=== PATIENT | female | born 1995 | race Caucasian/White ===

== ENCOUNTER 2019-01-21 07:41 | Emergency (ER) | payer SELFPAY ==
--- NOTE | 2019-01-21 08:52 | ER ---
Nurse's Notes [facility] Name: Radha Mason Age: 23 yrs Sex: Female : 1995 Arrival Date: 01/21/2019 Time: 07:43 Bed 13 Private MD: Diagnosis: Acute upper respiratory infection, unspecified Presentation: 01/21 07:49 Presenting complaint: Patient states: reports subjective fever, body aches, reports em chest pain with cough, and hacking milky/yellowish sputum for 3 days, denies N/V/D. Transition of care: patient was not received from another setting of care. Onset of symptoms was January 18, 2019. Risk Assessment: Do you want to hurt yourself or someone else? Patient reports no desire to harm self or others. Initial Sepsis Screen: Does the patient meet any 2 criteria? HR > 90 bpm. No. Patient's initial sepsis screen is negative. Does the patient have a suspected source of infection? Yes: Productive cough/pneumonia. Care prior to arrival: None. 07:49 Method Of Arrival: Ambulatory em 07:55 Acuity: JULIA 4 ss Triage Assessment: 07:52 General: Appears in no apparent distress. uncomfortable, ill, well groomed, well em developed, well nourished, Behavior is calm, cooperative. Pain: Complains of pain in chest Pain currently is 6 out of 10 on a pain scale. 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 - Social history:: Smoking status: unknown. - Ebola Screening: : Patient negative for fever greater than or equal to 101.5 degrees Fahrenheit, and additional compatible Ebola Virus Disease symptoms Patient denies exposure to infectious person Patient denies travel to an Ebola-affected area in the 21 days before illness onset No symptoms or risks identified at this time. Screenin:54 Abuse screen: Denies threats or abuse. Nutritional screening: No deficits noted. em Tuberculosis screening: No symptoms or risk factors identified. Fall Risk None identified. Assessment: 07:52 General: Appears in no apparent distress. uncomfortable, ill, Behavior is calm, em cooperative, Denies subjective fever. Pain: Complains of pain in chest Pain currently is 7 out of 10 on a pain scale. Neuro: Level of Consciousness is awake, alert, obeys commands, Oriented to person, place, time, situation. Cardiovascular: Reports chest pain, Heart tones S1 S2 present Capillary refill < 3 seconds Patient's skin is warm and dry. Respiratory: Reports cough that is hacking, pain with cough Airway is patent Respiratory effort is even, unlabored, Respiratory pattern is regular, symmetrical, Breath sounds are clear bilaterally. GI: Abdomen is flat, Patient currently denies diarrhea, nausea, vomiting. EENT: Nares are clear Oral mucosa is moist. Throat is clear is pink. Derm: Skin is intact, is healthy with good turgor, Skin is pink, warm \T\ dry. Musculoskeletal: Range of motion: intact in all extremities. 08:00 Reassessment: Patient appears in no apparent distress at this time. I agree with the sv above assessment. 09:09 Reassessment: Patient appears in no apparent distress at this time. Patient and/or em family updated on plan of care and expected duration. Pain level reassessed. Patient is alert, oriented x 3, equal unlabored respirations, skin warm/dry/pink. Vital Signs: 07:52 BP 107 / 71; Pulse 119; Resp 20; Temp 99.0(O); Pulse Ox 99% on R/A; Weight 61.23 kg; em Height 5 ft. 6 in. (167.64 cm); Pain 7/10; 09:09 BP 98 / 75; Pulse 112; Resp 18; Temp 99.1(O); Pulse Ox 100% on R/A; em 07:52 Body Mass Index 21.79 (61.23 kg, 167.64 cm) em ED Course: 07:43 Patient arrived in ED. as 07:46 Jaiden Diaz LVN is Primary Nurse. em 07:52 Arm band placed on. em 07:54 Patient has correct armband on for positive identification. Bed in low position. Call em light in reach. Side rails up X2. Adult w/ patient. Pulse ox on. NIBP on. 07:55 Triage completed. ss 07:56 Davis Davis PA is PHCP. jr8 07:56 Edgar Livingston MD is Attending Physician. jr8 09:13 No provider procedures requiring assistance completed. Patient did not have IV access em during this emergency room visit. Administered Medications: No medications were administered Outcome: 08:51 Discharge ordered by . jr8 09:13 Discharged to home ambulatory, with family. em 09:13 Condition: good 09:13 Discharge instructions given to patient, family, Instructed on discharge instructions, follow up and referral plans. medication usage, Demonstrated understanding of instructions, follow-up care, medications, Prescriptions given X 3. 09:13 Patient left the ED. em Signatures: Luz Puri, RN RN sv Jaiden Diaz, PROJECT ANALYST PROJECT ANALYST em Mi Bolanos Shelby, RN RN Davis Davis PA PA jr8
--- NOTE | 2019-01-21 08:53 | EDPHYS ---
Physician Documentation [facility] Name: Radha Mason Age: 23 yrs Sex: Female : 1995 Arrival Date: 01/21/2019 Time: 07:43 Bed 13 Private MD: ED Physician Edgar Livingston HPI: 01/21 08:05 This 23 yrs old Female presents to ER via Ambulatory with complaints of Flu jr8 Symptoms. 08:05 The patient reports fever, not measured (subjective). Onset: The symptoms/episode jr8 began/occurred acutely, 3 day(s) ago. Modifying factors: there are no obvious modifying factors. Associated signs and symptoms: Pertinent positives: arthralgias, chills, cough, shortness of breath, sore throat. Severity of symptoms: At their worst the symptoms were mild in the emergency department the symptoms are unchanged. The patient has not experienced similar symptoms in the past. The patient has not recently seen a physician. 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 - Social history:: Smoking status: unknown. - Ebola Screening: : Patient negative for fever greater than or equal to 101.5 degrees Fahrenheit, and additional compatible Ebola Virus Disease symptoms Patient denies exposure to infectious person Patient denies travel to an Ebola-affected area in the 21 days before illness onset No symptoms or risks identified at this time. ROS: 08:05 Eyes: Negative for injury, pain, redness, and discharge, Neck: Negative for injury, jr8 pain, and swelling, Cardiovascular: Negative for chest pain, palpitations, and edema, Abdomen/GI: Negative for abdominal pain, nausea, vomiting, diarrhea, and constipation, Back: Negative for injury and pain, MS/Extremity: Negative for injury and deformity, Skin: Negative for injury, rash, and discoloration, Neuro: Negative for headache, weakness, numbness, tingling, and seizure. 08:05 Constitutional: Positive for body aches, chills, fatigue, fever. 08:05 ENT: Positive for sore throat, Negative for drainage from ear(s), ear pain, rhinorrhea, sinus congestion, difficulty swallowing, difficulty handling secretions, hoarseness. 08:05 Respiratory: Positive for cough, shortness of breath, Negative for dyspnea on exertion, sputum production, wheezing. Exam: 08:05 Eyes: Pupils equal round and reactive to light, extra-ocular motions intact. Lids and jr8 lashes normal. Conjunctiva and sclera are non-icteric and not injected. Cornea within normal limits. Periorbital areas with no swelling, redness, or edema. ENT: Nares patent. No nasal discharge, no septal abnormalities noted. Tympanic membranes are normal and external auditory canals are clear. Oropharynx with no redness, swelling, or masses, exudates, or evidence of obstruction, uvula midline. Mucous membranes moist. Neck: Trachea midline, no thyromegaly or masses palpated, and no cervical lymphadenopathy. Supple, full range of motion without nuchal rigidity, or vertebral point tenderness. No Meningismus. Cardiovascular: Regular rate and rhythm with a normal S1 and S2. No gallops, murmurs, or rubs. Normal PMI, no JVD. No pulse deficits. Respiratory: Lungs have equal breath sounds bilaterally, clear to auscultation and percussion. No rales, rhonchi or wheezes noted. No increased work of breathing, no retractions or nasal flaring. Abdomen/GI: Soft, non-tender, with normal bowel sounds. No distension or tympany. No guarding or rebound. No evidence of tenderness throughout. Back: No spinal tenderness. No costovertebral tenderness. Full range of motion. Skin: Warm, dry with normal turgor. Normal color with no rashes, no lesions, and no evidence of cellulitis. MS/ Extremity: Pulses equal, no cyanosis. Neurovascular intact. Full, normal range of motion. Neuro: Awake and alert, GCS 15, oriented to person, place, time, and situation. Cranial nerves II-XII grossly intact. Motor strength 5/5 in all extremities. Sensory grossly intact. Cerebellar exam normal. Normal gait. 08:05 Constitutional: The patient appears alert, awake, non-toxic, obviously ill. Vital Signs: 07:52 BP 107 / 71; Pulse 119; Resp 20; Temp 99.0(O); Pulse Ox 99% on R/A; Weight 61.23 kg; em Height 5 ft. 6 in. (167.64 cm); Pain 7/10; 09:09 BP 98 / 75; Pulse 112; Resp 18; Temp 99.1(O); Pulse Ox 100% on R/A; em 07:52 Body Mass Index 21.79 (61.23 kg, 167.64 cm) em MDM: 07:56 Patient medically screened. [facility] 08:50 Data reviewed: vital signs, nurses notes, lab test result(s), Flu: negative radiologic [facility] studies, plain films. Data interpreted: Pulse oximetry: on room air is 99 %. Interpretation: normal. Counseling: I had a detailed discussion with the patient and/or guardian regarding: the historical points, exam findings, and any diagnostic results supporting the discharge/admit diagnosis, lab results, radiology results, the need for outpatient follow up, a family practitioner, to return to the emergency department if symptoms worsen or persist or if there are any questions or concerns that arise at home. 01/21 07:56 Order name: Influenza Screen (a \T\ B) [facility] 01/21 08:34 Order name: Influenza Screen (A ; Complete Time: 08:40 EDMS 01/21 08:04 Order name: XRAY Chest (1 view) [facility] 01/21 08:54 Order name: RAD; Complete Time: 08:54 EDMS Administered Medications: No medications were administered Disposition: 15:33 Co-signature as Attending Physician, Edgar Livingston MD I agree with the assessment and kdr plan of care. Disposition: 01/21/19 08:51 Discharged to Home. Impression: Acute upper respiratory infection, unspecified. - Condition is Stable. - Discharge Instructions: Upper Respiratory Infection, Adult. - Prescriptions for Prednisone 20 mg Oral Tablet - take 1 tablet by ORAL route once daily for 5 days; 5 tablet. Guaifenesin AC 10- 100 mg/5 mL Oral Liquid - take 10 milliliter by ORAL route every 4 hours As needed; 240 milliliter. Tessalon Perles 100 mg Oral Capsule - take 1 capsule by ORAL route every 8 hours As needed; 15 capsule. - Medication Reconciliation Form, Thank You Letter, Antibiotic Education, Prescription Opioid Use form. - Follow up: Private Physician; When: As needed; Reason: Recheck today's complaints, Continuance of care, Re-evaluation by your physician. - Problem is new. - Symptoms have improved. Signatures: Dispatcher [employer] EDEdgar Curtis MD MD kdr Munoz, Edgar, COMMERCIAL HVAC SERVICE TECHNICIAN COMMERCIAL HVAC SERVICE TECHNICIAN Davis Tripathi PA PA jr8 Corrections: (The following items were deleted from the chart) 09:13 08:51 01/21/2019 08:51 Discharged to Home. Impression: Acute upper respiratory em infection, unspecified. Condition is Stable. Forms are Medication Reconciliation Form, Thank You Letter, Antibiotic Education, Prescription Opioid Use. Follow up: Private Physician; When: As needed; Reason: Recheck today's complaints, Continuance of care, Re-evaluation by your physician. Problem is new. Symptoms have improved. jr8
--- NOTE | 2019-01-21 08:53 | RAD REPORT ---
EXAM DESCRIPTION: RAD - Chest Single View - 01/21/2019 8:46 am CLINICAL HISTORY: Cough, fever, body aches COMPARISON: None. TECHNIQUE: AP portable chest image was obtained 0840 hours . FINDINGS: Lungs are clear. Heart and vasculature are normal. No measurable pleural effusion and no p neumothorax. No acute bony abnormality seen. No acute aortic findings suspected. IMPRESSION: No acute cardiopulmonary process.
== END 2019-01-21 09:13 | disposition home or self-care (01) ==
LOC: ER 07:41
DX: J06.9 Acute upper respiratory infection, unspecified (principal)
CPT/HCPCS: 71045; 87804; 99283

== ENCOUNTER 2022-09-14 15:19 | Emergency (ER) | payer SELFPAY ==
--- OUTSIDE RECORDS SUMMARY | 2022-09-14 15:22 | XMS REPORT | Continuity of Care Document ---
:1995 Author Organization [facility] t Address [address] [place] [address] Care Team Providers Name Role Phone Boris Bowen MD Primary Care Physician BORIS BOWEN Attending Clinician Unavailable Boris Bowen MD Attending Clinician Shoshana Rodriguez PA-C Attending Clinician SHOSHANA RODRIGUEZ Attending Clinician Unavailable Blayne Coker MD Attending Clinician BLAYNE COKER Attending Clinician Unavailable Doctor Unassigned, [place] Attending Clinician Unavailable Mary Soto Attending Clinician MARY BACA Attending Clinician Unavailable Pob, Adc Lab Main Attending Clinician Unavailable Problems Condition Condition Condition Status Onset Resolution Last Treating Co mments Source Name Details Category Date Date Treatment Clinician Date ASCUS with ASCUS with Disease Active 2020-11 U nivers positive positive 0-11 [place] HPV HPV 00 [place] cervical cervical Branch Anxiety Anxiety Disease Active Univers 1-11 ity of 00:00: [place] 00 Medical Branch Allergies, Adverse Reactions, Alerts Allergy Allergy Status Severity Reaction(s) Onset Inactive Treating Comm ents Source Name Type Date Date Clinician Cefprozi Propensi Active Unknown - Uni vers l ty to See comments - ity of adverse 00:00: [place] reaction 00 Medical s Branch CEFPROZI DRUG Active Unknown-Cmnt Un carol L INGREDI 1-11 ity of 00:00: [place] 00 Medical Branch Social History Social Habit Start Date Stop Date Quantity Comments Source Exposure to Not sure University of SARS-CoV-2 [place] Medical (event) Branch History of Occasional tobacco Univer sity of tobacco use smoker [facility] Alcohol intake 2021-09-17 2021-09-17 Current University of 00:00:00 00:00:00 non-drinker of [facility] alcohol (finding) Branch Tobacco use and 2015-12-10 2015-12-10 Smokeless tobacco Un iversity of exposure 00:00:00 00:00:00 non-user [facility] Sex Ass[birth year] At [birth year] Universit y of 00:00:00 00:00:00 [facility] Smoking Status Start Date Stop Date Source Occasional tobacco smoker 2015-12-10 00:00:00 Un iversity of [facility] Medications Ordered Filled Start Stop Current Ordering Indication Dosage Frequency Signature Comments Components Source Medication Medication Date Date Medication? Clinician (SIG) Name Name ALPRAZOLAM Yes [id number] 1mg TAKE 1 U nivers 1 mg tablet 7-06 TABLET BY ity of 00:00: MOUTH 3 00 (THREE) Medical TIMES Branch DAILY NEEDED FOR OTHER (ANXIETY). ALPRAZOLAM Yes [id number] 1mg TAKE 1 U nivers 1 mg tablet 7-06 TABLET BY ity of 00:00: MOUTH 3 [place] 00 (THREE) Medical TIMES Branch DAILY NEEDED FOR OTHER (ANXIETY). ALPRAZOLAM Yes [id number] 1mg TAKE 1 U nivers 1 mg tablet 7-06 TABLET BY ity of 00:00: MOUTH 3 [place] 00 (THREE) Medical TIMES Branch DAILY NEEDED FOR OTHER (ANXIETY). ALPRAZOLAM Yes [id number] 1mg TAKE 1 U nivers 1 mg tablet 7-06 TABLET BY ity of 00:00: MOUTH 3 [place] 00 (THREE) Medical TIMES Branch DAILY NEEDED FOR OTHER (ANXIETY). ALPRAZOLAM Yes [id number] 1mg TAKE 1 U nivers 1 mg tablet 7-06 TABLET BY ity of 00:00: MOUTH 3 [place] 00 (THREE) Medical TIMES Branch DAILY NEEDED FOR OTHER (ANXIETY). ALPRAZolam No [id number] 1mg Take 1 Univers 1 mg tablet 3-16 07-06 tablet by it y of 00:00: 00:00 mouth 3 [place] 00 :00 (three) Medical times Branch daily as needed for Other (anxiety). ALPRAZolam 2021-0 Yes [id number] 1mg Take 1 U nivers 1 mg tablet 2-07 tablet by ity of 00:00: mouth 3 [place] 00 (three) Medical times Branch daily as needed for Other (anxiety). ALPRAZolam 0 Yes [id number] 1mg Take 1 U nivers 1 mg tablet 2-07 tablet by ity of 00:00: mouth 3 [place] 00 (three) Medical times Branch daily as needed for Other (anxiety). ALPRAZolam 2021-0 Yes [id number] 1mg Take 1 U nivers 1 mg tablet 2-07 tablet by ity of 00:00: mouth 3 [place] 00 (three) Medical times Branch daily as needed for Other (anxiety). metroNIDAZO 2021-0 Yes [id number] 500mg Take 1 Univers LE 500 mg 1-10 tablet by ity o f tablet 00:00: mouth [place] 00 every 12 Medical (twelve) Branch hours. metroNIDAZO 2021-0 Yes [id number] 500mg Take 1 Univers LE 500 mg 1-10 tablet by ity o f tablet 00:00: mouth [place] 00 every 12 Medical (twelve) Branch hours. metroNIDAZO 2021-0 Yes [id number] 500mg Take 1 Univers LE 500 mg 1-10 tablet by ity o f tablet 00:00: mouth [place] 00 every 12 Medical (twelve) Branch hours. metroNIDAZO 2021-0 Yes [id number] 500mg Take 1 Univers LE 500 mg 1-10 tablet by ity o f tablet 00:00: mouth [place] 00 every 12 Medical (twelve) Branch hours. metroNIDAZO 2021-0 Yes [id number] 500mg Take 1 Univers LE 500 mg 1-10 tablet by ity o f tablet 00:00: mouth [place] 00 every 12 Medical (twelve) Branch hours. metroNIDAZO 2021-0 Yes [id number] 500mg Take 1 Univers LE 500 mg 1-10 tablet by ity o f tablet 00:00: mouth [place] 00 every 12 Medical (twelve) Branch hours. metroNIDAZO 2021-0 Yes [id number] 500mg Take 1 Univers LE 500 mg 1-10 tablet by ity o f tablet 00:00: mouth [place] 00 every 12 Medical (twelve) Branch hours. metroNIDAZO 0 Yes [id number] 500mg Take 1 Univers LE 500 mg 1-10 tablet by ity o f tablet 00:00: mouth [place] 00 every 12 Medical (twelve) Branch hours. metroNIDAZO 0 Yes [id number] 500mg Take 1 Univers LE 500 mg 1-10 tablet by ity o f tablet 00:00: mouth [place] 00 every 12 Medical (twelve) Branch hours. metroNIDAZO 0 Yes [id number] 500mg Take 1 Univers LE 500 mg 1-10 tablet by ity o f tablet 00:00: mouth [place] 00 every 12 Medical (twelve) Branch hours. metroNIDAZO Yes [id number] 500mg Take 1 Univers LE 500 mg 1-10 tablet by ity o f tablet 00:00: mouth [place] 00 every 12 Medical (twelve) Branch hours. metroNIDAZO 2020-11- No [id number] 500mg Take 1 Univers LE 500 mg 1-01 01-10 tablet by ity of tablet 00:00: 00:00 mouth [place] 00 :00 every 12 Medical (twelve) Branch hours. ALPRAZolam Yes [id number] 1mg Take 1 U nivers 1 mg tablet 8-09 tablet by ity of 00:00: mouth 3 [place] 00 (three) Medical times Branch daily as needed for Other (anxiety). ALPRAZolam Yes [id number] 1mg Take 1 U nivers 1 mg tablet 8-09 tablet by ity of 00:00: mouth 3 [place] 00 (three) Medical times Branch daily as needed for Other (anxiety). ALPRAZolam Yes [id number] 1mg Take 1 U nivers 1 mg tablet 8-09 tablet by ity of 00:00: mouth 3 [place] 00 (three) Medical times Branch daily as needed for Other (anxiety). ALPRAZolam 2021- No [id number] 1mg Take 1 Univers 1 mg tablet 8-08 01-07 tablet by it y of 00:00: 00:00 mouth 3 [place] 00 :00 (three) Medical times Branch daily as needed for Other (anxiety). Vital Signs Vital Name Observation Time Observation Value Comments Source Systolic blood 2021-12-09 20:44:00 111 mm[Hg] Univer sity of pressure [facility] Diastolic blood 2021-12-09 20:44:00 76 mm[Hg] Unive rsity of [facility] Heart rate 2021-12-09 20:44:00 82 /min [facility] Body temperature 2021-12-09 20:44:00 36.61 Jessica [facility] 2021-12-09 20:44:00 18 /min [facility] Body height 2021-12-09 20:44:00 165.1 cm [facility] Body weight 2021-12-09 20:44:00 49.896 kg [facility] BMI 2021-12-09 20:44:00 18.30 kg/m2 [facility] Procedures This patient has no known procedures. Encounters Start End Encounter Admission Attending Care Care Encounter Source Date/Time Date/Time Type Type Clinicians Facility Department ID 2022-09-17 2022-09-17 Outpatient R ANDRÉS [facility] [id number] Univers 08:30:00 [facility]:30:[facility] 2022-09-10 2022-09-10 Telephone [facility] [id number] Univers 00:00:00 00:00:00 [facility] [id number] [facility] [id number] Lauri as SARMAD?BLEA [id number] [address] OFFICE [facility] 2022-09-04 2022-09-04 [facility] [id number] Univers 00:00:00 00:00:00 [facility] [id number] it y of [place] [id number] Lauri as SARMAD?BLEA [phone] [address] 2022-06-04 2022-06-04 [facility] [id number] Univers 00:00:00 00:00:00 [facility] [id number] it y of [place] [id number] Lauri as SARMAD?BLEA [phone] Ar marika CUELLAR [address] [place] [address] OFFICE [facility] 2022-02-12 2022-02-12 Outpatient Christi BOWEN [facility] [id number] Univers 13:15:00 13:15:00 BORIS lyubov [facility] 2022-02-09 2022-02-09 [facility] 1.2.840.114 [id number] Univers 00:00:00 00:00:00 [facility] [id number] it y of [place] [id number] Lauri as PROFESSIO [phone] Ar marika NAL [address] [place] [address] ONE 2022-01-08 2022-01-08 Outpatient Christi BOWEN [facility] [id number] Univers 07:15:00 07:15:00 BORIS lyubov [facility] 2022-01-06 2022-01-06 [facility] 1.2.840.114 [id number] Univers 00:00:00 00:00:00 [facility] [id number] it y of [place] [id number] Lauri as SARMAD?BLEA [phone] Ar marika CUELLAR [address] [place] [address] 2022-01-05 2022-01-05 [facility] 1.2.840.114 [id number] Univers 00:00:00 00:00:00 [facility] 350.1.13.10 it y of [place] [id number] Lauri as PROFESSIO [phone] Ar marika NAL [address] [place] [address] ONE 2021-12-31 2021-12-31 [facility] 1.2.840.114 [id number] Univers 00:00:00 00:00:00 [facility] [id number] it y of [place] [id number] Lauri as PROFESSIO [id number] [facility] NAL [address] [place] [address] ONE 2021-12-25 2021-12-25 Telephone [facility] 1.2.840.114 [id number] Univers 00:00:00 00:00:00 Shoshanaguillermo FARIASBINH 350.1.13.10 i ty of [place] 4.2.7.2.686 [place] PROFESS[place] [phone] [address] 2021-12-09 2021-12-09 Outpatient R STONE [facility] [id number] Univers 14:15:00 14:54:28 SHOSHANA [facility] 2021-12-09 2021-12-09 Office [facility] [id number] Univers 14:15:00 14:54:28 Visit Shoshana WORLEY 350.1.13.10 i [place] 4.2.7.2.686 [place] PROFESS[place] [phone] [address] 2021-09-30 2021-09-30 Office [facility] 1.2.084.126 [id number] Univers 10:04:44 10:31:00 Visit Shoshana WORLEY 350.1.13.10 i [place] 4.2.7.2.686 [place] PROFESS[place] [phone] [address] 2021-09-30 2021-09-30 Outpatient R STONE [facility] [id number] Univers 10:00:00 10:31:00 SHOSHANA [facility] 2021-09-24 2021-09-24 Telephone Blayne Coker [facility] 1.2.840.114 [id number] Univers 00:00:00 00:00:00 Richie Worley 350.1.13.10 i ty [place]2.7.2.[place] Profess[place] [phone] Ar dic[address] 2021-09-19 2021-09-19 Outpatient R STONE [facility] [id number] Univers 14:30:00 14:30:00 SHOSHANA [facility] 2021-09-17 2021-09-17 Office Blayne Coker [facility] [id number] Univers 14:33:02 17:03:08 Visit Richie Worley 350.1.13.10 i [place] 4[place]2.7.2.686 [place] Profess[place] [phone] Ar dic[address] 2021-09-17 2021-09-17 Outpatient R BLAYNE COKER [facility] [id number] Univers 14:30:00 14:30:00 ity of [facility] 2021-09-17 2021-09-17 Orders Doctor BRANDI 1.2.840.114 [id number] Univers 00:00:00 00:00:00 Only Unassigned, ELLIE 350.1.13.10 ity of [place] [facility] 4.2.7.2.686 Lauri as [phone] [address] 2021-09-09 2021-09-09 Office [facility] [id number] Univers 08:54:46 09:36:17 Visit Mary Amanda [employer] 350.1.13.10 it y of [facility] 4.2.7.2.686 Lauri as MATERNAL [phone] Med ical & CHILD [address] [place] [address] 2021-09-09 2021-09-09 Outpatient R KEVEN [facility] [id number] Univers 08:30:00 08:30:00 MARY vasquez [facility] 2021-09-09 2021-09-09 Orders Doctor BRANDI 1.2.840.114 [id number] Univers 00:00:00 00:00:00 Only Unassigned, ELLIE 350.1.13.10 ity of [place] [facility] 4.2.7.2.686 Lauri as [phone] [address] 2021-09-03 2021-09-03 Leo [facility] [id number] Univers 00:00:00 00:00:00 Management Shoshana Worley 350.1.13.10 it[place] of [place]2.7.2.[place] [phone] Ar dic[address] 2021-09-03 2021-09-03 Jeannieill [facility] [id number] Univers 00:00:00 00:00:00 Shoshana Worley 350.1.13.10 i [place] 4[place]2.7.2.686 [place] [phone] Ar dical nal 134 [facility] 2021-08-30 2021-08-30 Telephone [facility] 1.2.840.114 [id number] Univers 00:00:00 00:00:00 Shoshana Worley 350.1.13.10 i [place] 4[place]2.7.2.[place] Profess[place] [phone] Ar dical nal 134 [facility] 2021-08-15 2021-08-15 Hospital [facility] 1.2.840.114 [id number] [facility] 14:22:37 23:59:00 Encounter Shoshana Worley 350.1.13.10 ity of [place] 4.2.7.2.686 [place] [id number] [facility] [address] 2021-08-15 2021-08-15 Office [facility] [id number] [facility] 13:17:26 14:01:51 Visit Shoshana Worley 350.1.13.10 i [place] of [place] 4[place]2.7.2.[place] [phone] Ar dical nal 134 [facility] 2021-08-15 2021-08-15 [facility] [id number] Univers 13:30:00 13:30:00 SHOSHANA ity of [facility] 2021-08-01 2021-08-01 Mold Filler Sreedhar, Adc Lab Main [facility] 1.2.8 40.114 [id number] Univers 09:30:26 09:45:26 Visit Shoshana Rodriguez 350.1.13.10 ity of [place] 4.2.7.2.[place] [phone] Ar dical nal 353 [facility] 2021-08-01 2021-08-01 Mold Filler Sreedhar, Adc Lab Main [facility] 1.2.8 40.114 [id number] Univers 09:30:26 09:45:26 Visit Shoshana Rodriguez 350.1.13.10 ity of [place] 4[place]2.7.2.686 [place] [phone] Ar dical nal 353 [facility] 2021-08-01 2021-08-01 Outpatient R [facility] [id number] Univers 09:00:00 09:00:00 ity of [facility] 2021-07-31 2021-07-31 Office Stone [facility] [id number] Univers 13:21:12 14:28:36 Visit Shoshanaguillermo Worley 350.1.13.10 i ty of [place] 4.2.7.2.686 [place] [phone] Ar dical nal 134 [facility] 2021-07-31 2021-07-31 Office [facility] [id number] Univers 13:21:12 14:28:36 Visit Shoshana Worley 350.1.13.10 i [place] of [place] 4.2.7.2.[place] [phone] Ar dical nal 134 [facility] 2021-07-31 2021-07-31 [facility] [id number] Univers 13:30:00 13:30:00 SHOSHANA pedro [facility] 2021-07-08 2021-07-08 Office [facility] 1.2.840.114 [id number] Univers 12:36:41 12:51:41 Visit [facility] 350.1.13.10 it y of [place] 4.2.7.2.686 Lauri as Professio [phone] Ar dical [facility] [address] One 2021-07-08 2021-07-08 Out[facility] [id number] Univers 12:45:00 12:45:00 BORIS vasquez [facility] 2021-07-08 2021-07-08 Orders Doctor PAZ 1.2.840.114 [id number] Univers 00:00:00 00:00:00 Only Unassigned, ELLIE 350.1.13.10 ity of [place] [facility] 4.2.7.2.686 Lauri as [phone] [address] 2021-07-04 2021-07-04 Tanya Bowen [facility] [id number] Univers 00:00:00 00:00:00 [facility] 350.1.13.10 it y of [place] 4.2.7.2.686 Lauri as Professio [phone] [address] One 2020-01-16 2020-01-16 Key[facility] 1.2.840.114 [id number] Univers 00:00:00 00:00:00 [facility] 350.1.13.10 it y of [place] 4.2.7.2.686 Lauri as Professio [phone] [facility] nal [address] [place] [address] One 2020-01-14 2020-01-14 Keyana [facility] 1.2.840.114 [id number] Univers 00:00:00 00:00:00 Boris [place] 350.1.13.10 i ty of [place] 4.2.7.2.[place] [phone] [facility] nal [address] [place] [address] 2020-01-14 2020-01-14 Keyana [facility] 1.2.840.114 [id number] Univers 00:00:00 00:00:00 [facility] 350.1.13.10 it y of [place] 4.2.7.2.686 Lauri as Professio [phone] [address] One Results This patient has no known results.
--- NOTE | 2022-09-14 17:15 | RAD REPORT ---
EXAM DESCRIPTION: RAD - Chest Single View - 09/14/2022 4:59 pm CLINICAL HISTORY: Chest pain COMPARISON: Chest Single View dated 01/21/2019 FINDINGS: Lines: None. Lungs: Mild opacities peripherally at the left lung base. Pleural: No significant pleural effusions or pneumothorax. Cardiac: Increased cardiomegaly. Mediastinum: Within normal limits. Bones: No acute fractures. Other: None IMPRESSION: Mild opacities peripherally at the left lung base could reflect atelectasis and/or pneum onia. Question developing cardiomegaly. Consider echocardiography for further evaluation.
[2022-09-14] MEDS ORDERED: AZITHROMYCIN 250 MG TAB ONE (17:20)
--- NOTE | 2022-09-14 18:03 | ER ---
Nurse's Notes [facility] Name: Radha Mason Age: 26 yrs Sex: Female : 1995 Arrival Date: 09/14/2022 Time: 15:22 Bed 17 Private MD: Diagnosis: Pneumonia, unspecified organism Presentation: 09/14 15:24 Chief complaint: Patient states: my chest hurts like hell. it hurts so bad. it has been tw2 going on for a year. this feels more like it is in my lungs than in my heart. about 3 days ago. today i woke up and i was crying. yesterday my back was hurting. and feeling nauseous weak, and fatigued. i feel short of breath and it hurts to take a deep breath. slight fever. my coworker tested positive about 2 weeks ago. Coronavirus screen: cough unrelated to allergies, fatigue. Ebola Screen: Patient denies travel to an Ebola-affected area in the 21 days before illness onset. Initial Sepsis Screen: Does the patient meet any 2 criteria? HR > 90 bpm. No. Patient's initial sepsis screen is negative. Does the patient have a suspected source of infection? No. Patient's initial sepsis screen is negative. Risk Assessment: Do you want to hurt yourself or someone else? Patient reports no desire to harm self or others. Onset of symptoms was September 14, 2022. 15:24 Method Of Arrival: Ambulatory tw2 15:24 Acuity: JULIA 3 tw2 Triage Assessment: 15:27 General: Appears in no apparent distress. slender, well groomed, Behavior is calm, tw2 cooperative, appropriate for age. Pain: Complains of pain in right lung and back. Cardiovascular: Reports shortness of breath. 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 - Social history:: Smoking status: Patient reports the use of cigarette tobacco products, smokes one-half pack cigarettes per day. Screenin:36 Abuse screen: Denies threats or abuse. Nutritional screening: No deficits noted. tw2 Tuberculosis screening: No symptoms or risk factors identified. Fall Risk None identified. Assessment: 15:35 Reassessment: provider WILL Segura in triage room performing assessment. tw2 15:36 Pain: Pain radiates to back Pain began 2-3 days ago. tw2 18:15 Reassessment: PT DC HOME AMBULATORY. bp Vital Signs: 15:24 BP 108 / 79; Pulse 111; Resp 19; Temp 99.1(TE); Pulse Ox 100% on R/A; tw2 18:15 BP 113 / 75; Pulse 99; Resp 16; Pulse Ox 99% ; bp ED Course: 15:22 Patient arrived in ED. ja2 15:27 Triage completed. tw2 15:30 Arm band placed on. tw2 15:31 [facility]C [facility] kb 15:31 Drew Duque MD is Attending Physician. kb 15:36 Patient maintains SpO2 saturation greater than 95% on room air. tw2 15:39 EKG done, by ED staff, reviewed by Karen HERMAN. em1 15:40 Flu Sent. tw2 15:40 COVID-19 SARS RT PCR (Document "Date of Onset" if Symptomatic) Sent. tw2 16:11 Geraldo Jones, RN is Primary Nurse. bp 17:00 XRAY Chest (1 view) In Process Unspecified. EDMS 18:15 Patient has correct armband on for positive identification. Bed in low position. Call bp light in reach. Side rails up X2. Client placed on continuous cardiac and pulse oximetry monitoring. NIBP monitoring applied. 18:15 No provider procedures requiring assistance completed. Patient did not have IV access bp during this emergency room visit. Administered Medications: 17:21 Drug: Zithromax (azithromycin) 500 mg Route: PO; bp 18:17 Follow up: Response: No adverse reaction bp Medication: 15:36 VIS not applicable for this client. tw2 Outcome: 18:02 Discharge ordered by . kb 18:15 Discharged to home ambulatory. bp 18:15 Condition: stable 18:15 Discharge instructions given to patient, Instructed on discharge instructions, follow up and referral plans. medication usage, Demonstrated understanding of instructions, follow-up care, medications, Prescriptions given X 1. 18:17 Patient left the ED. bp Signatures: Dispatcher [employer] EDKaren Ceballos, VIRGIL SOLIS-Oli Russo em1 Daphne Pfeiffer RN RN tw2 Geraldo Jones, RN RN bp Rosa Buitrago
--- NOTE | 2022-09-14 18:03 | EDPHYS ---
Physician Documentation [facility] Name: aRdha Mason Age: 26 yrs Sex: Female : 1995 Arrival Date: 09/14/2022 Time: 15:22 Bed 17 Private MD: ED Physician Drew Duque HPI: 09/14 15:47 This 26 yrs old Female presents to ER via Ambulatory with complaints of Chest Pain, kb Shortness Of Breath, Weakness. 15:47 The patient or guardian reports chest pain that is located primarily in the anterior kb chest wall, bilaterally. The pain does not radiate. Associated signs and symptoms: Pertinent positives: cough, shortness of breath. The chest pain is described as sharp. Duration: The patient or guardian reports a single episode. Modifying factors: The symptoms are alleviated by nothing. the symptoms are aggravated by deep breath. Severity of pain: At its worst the pain was moderate in the emergency department the pain is unchanged. The patient has not experienced similar symptoms in the past. The patient has not recently seen a physician. 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 - Social history:: Smoking status: Patient reports the use of cigarette tobacco products, smokes one-half pack cigarettes per day. ROS: 15:46 Constitutional: Negative for fever, chills, and weight loss. kb 15:46 Cardiovascular: Positive for chest pain, Negative for edema, orthopnea, palpitations, paroxysmal nocturnal dyspnea. 15:46 Respiratory: Positive for cough, pleurisy, shortness of breath. 15:46 All other systems are negative. Exam: 15:46 Constitutional: This is a well developed, well nourished patient who is awake, alert, kb and in no acute distress. Head/Face: Normocephalic, atraumatic. ENT: Moist Mucous membranes Cardiovascular: Regular rate and rhythm with a normal S1 and S2. No gallops, murmurs, or rubs. No pulse deficits. Respiratory: Respirations even and unlabored. No increased work of breathing. Talking in full sentences Abdomen/GI: Soft, non-tender. No distention Skin: Warm, dry with normal turgor. Normal color. MS/ Extremity: Pulses equal, no cyanosis. Neurovascular intact. Full, normal range of motion. Neuro: Awake and alert, GCS 15, oriented to person, place, time, and situation. Moves all extremities. Normal gait. Psych: Awake, alert, with orientation to person, place and time. Behavior, mood, and affect are within normal limits. 15:47 ECG was reviewed by the Attending Physician. kb Vital Signs: 15:24 BP 108 / 79; Pulse 111; Resp 19; Temp 99.1(TE); Pulse Ox 100% on R/A; tw2 18:15 BP 113 / 75; Pulse 99; Resp 16; Pulse Ox 99% ; bp MDM: 15:35 Patient medically screened. kb 15:46 Data reviewed: vital signs, nurses notes. Data interpreted: Pulse oximetry: on room air kb is 100 %. Interpretation: normal. 15:57 ED course: Patient refuses blood work.. 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 ED course: Discussed echo recommendation with Dr Dominique. Recommendation is for outpatient, not emergent echo.Discussed questionable cardiomegaly and need for outpatient echo. Verbal understanding received. . 09/14 15:35 Order name: COVID-19 SARS RT PCR (Document "Date of Onset" if Symptomatic); Complete kb Time: 16:25 09/14 15:35 Order name: Flu; Complete Time: 16:16 kb 09/14 15:35 Order name: XRAY Chest (1 view); Complete Time: 17:17 kb 09/14 15:35 Order name: EKG; Complete Time: 15:36 kb 09/14 15:35 Order name: Cardiac monitoring; Complete Time: 16:16 kb 09/14 15:35 Order name: EKG - Nurse/Tech; Complete Time: 15:36 kb 09/14 15:35 Order name: O2 Per Protocol; Complete Time: 15:37 kb 09/14 15:35 Order name: O2 Sat Monitoring; Complete Time: 15:36 kb EC:47 Rate is 105 beats/min. Rhythm is regular. QRS [place] is Normal. [place] interval is normal at kb 132 msec. QRS interval is normal at 76 msec. QT interval is normal at 412 msec. Administered Medications: 17:21 Drug: Zithromax (azithromycin) 500 mg Route: PO; bp 18:17 Follow up: Response: No adverse reaction bp Disposition Summary: 09/14/22 18:02 Discharge Ordered Location: Home kb Condition: Stable kb Diagnosis - Pneumonia, unspecified organism kb Followup: kb - With: Emergency Department - When: As needed - Reason: Worsening of condition Followup: kb - With: Private Physician - When: 2 - 3 days - Reason: Recheck today's complaints, Continuance of care, Re-evaluation by your physician Discharge Instructions: - Community-Acquired Pneumonia, Adult, [id number] kb - Discharge Summary Sheet tw2 Forms: - Medication Reconciliation Form kb - Thank You Letter kb - Antibiotic Education kb - Work release form tw2 - Prescription Opioid Use kb Prescriptions: - Zithromax 500 mg Oral Tablet - take 1 tablet by ORAL route once daily for 5 days; 5 tablet; Refills: 0, kb Product Selection Permitted Signatures: Dispatcher [employer] EDKaren Ceballos FNP-Inna SOLIS-Daphne Hood RN RN tw2 Geraldo Jones, RN RN bp Corrections: (The following items were deleted from the chart) 16:16 15:35 IV Saline Lock ordered. kb bp 16:16 15:35 Labs collected and sent ordered. kb bp 16:26 15:36 BASIC METABOLIC PANEL+C.LAB.BRZ ordered. EDMS EDMS 16:26 15:36 CBC+H.LAB.BRZ ordered. EDMS EDMS 16:26 15:36 D-DIMER+COAG.LAB.BRZ ordered. EDMS EDMS 16:26 15:36 Troponin High Sensitivity+C.LAB.BRZ ordered. EDMS EDMS
[2022-09-14 18:40] VITALS: TEMP 99.1
[2022-09-14 18:42] VITALS: BP 113/75; O2SAT 99
--- NOTE | 2022-09-15 16:10 | EKG ---
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
== END 2022-09-14 18:17 | disposition home or self-care (01) ==
LOC: ER 15:19
DX: J18.9 Pneumonia, unspecified organism (principal); F17.210 Nicotine dependence, cigarettes, uncomplicated; Z20.822 Contact with and (suspected) exposure to COVID-19
CPT/HCPCS: 71045; 87804; 93005; 99284; U0003